=== PATIENT | male | born 1985 | race African-American/Black ===

== ENCOUNTER 2019-09-28 15:58 | Emergency (ER) | payer MEDICAID ==
[~2019-09-28] VITALS: Ht 188 cm; Wt 89.0 kg
[2019-09-28 16:40] VITALS: BP 142/74
[2019-09-28] MEDS ORDERED: CEFTRIAXONE SODIUM 250 MG/VIAL IM ONE (17:45)
[2019-09-28] MEDS ORDERED: AZITHROMYCIN 500 MG TABLET PO ONE (17:45)
== END 2019-09-28 18:03 | disposition home or self-care (01) ==
LOC: ER 15:58
DX: A64 Unspecified sexually transmitted disease (principal); I10 Essential (primary) hypertension
CPT/HCPCS: 96372; 99283; J0696